=== PATIENT | female | born 1950 ===

== ENCOUNTER → 2021-04-26 07:06 | Outpatient (CLI) | payer OTHER ==
[~2021-04-26 07:06] MED LIST: ALENDRONATE SOD70 MG PO; ENALAPRIL MALEA10 MG PO; HORIZANT600 MG PO; MACROBID 100 M100 MG PO; NOVALOG; SIMVASTA PO; ULTRACET PO; VITAMIN D PO
== END | disposition home or self-care (01) ==
LOC: LAB 07:06
PROVIDERS: ATTEND Obstetrics & Gynecology Gynecology
DX: D64.9 Anemia, unspecified (principal); R07.9 Chest pain, unspecified; D68.9 Coagulation defect, unspecified; N39.0 Urinary tract infection, site not specified

== ENCOUNTER 2021-05-18 05:36 | Day surgery (SDC) | payer OTHER ==
[~2021-05-18 05:36] MED LIST changes: -MACROBID 100 M100 MG PO; -ULTRACET PO
[2021-05-18] MEDS ORDERED: MACROBID 100 M100 MG PO (11:55)
[2021-05-18] MEDS ORDERED: ULTRACET PO (11:55)
== END 2021-05-18 17:25 | disposition home or self-care (01) ==
LOC: CIR.AMB 05:36
PROVIDERS: ATTEND Obstetrics & Gynecology Gynecology
DX: N81.11 Cystocele, midline (principal); Z20.822 Contact with and (suspected) exposure to COVID-19